=== PATIENT | male | born 1970 | race Caucasian/White ===

== ENCOUNTER 2024-10-01 00:36 | Emergency (ER) | payer BC ==
[2024-10-01 00:54] LABS: BASOPHILS ABSOLUTE AUTO 0.1 x10-3/uL (0.0-0.3); BASOPHILS PERCENT AUTO 0.7 % (0.3-3.8); EOSINOPHILS ABSOLUTE AUTO 0.3 x10-3/uL (0.0-0.6); EOSINOPHILS PERCENT AUTO 2.5 % (0.1-6.8); HEMATOCRIT 39.2 % (38.3-50.1); HEMOGLOBIN 13.8 g/dL (12.9-17.7); LYMPHOCYTES ABSOLUTE AUTO 3.5 x10-3/uL (0.5-4.5); MEAN CORPUSCULAR HEMOGLOBIN 34.8 pg (27.0-33.3); MEAN CORPUSCULAR HGB CONC 35.1 g/dL (28.7-35.3); MEAN PLATELET VOLUME 7.4 fL (6.7-11.0); MONOCYTES ABSOLUTE AUTO 1.1 x10-3/uL (0.0-1.2); NEUTROPHILS ABSOLUTE AUTO 7.1 x10-3/uL (1.7-6.9); NEUTROPHILS PERCENT AUTO 58.8 % (40.3-71.8); PLATELET COUNT,PLT 316 x10(3)uL (117-477); RED BLOOD CELL COUNT 3.96 x10(6)uL (3.90-5.90); RED CELL DISTRIBUTION WIDTH 13.4 % (12.4-15.0); WHITE BLOOD CELL COUNT,WBC 12.1 x10-3/uL (3.2-10.1)
[2024-10-01] MEDS: Ketorolac 30 MG/ML SDV IVPUSH ONE (01:00)
[2024-10-01] MEDS: Sodium Chloride 0.9% 10 ML Syringe FLUSH PRN (01:01)
[2024-10-01 01:02] LABS: A/G RATIO 0.9; ALANINE AMINOTRANSFERASE,ALT 59 U/L (12-36); ALBUMIN 3.4 g/dL (3.5-5.2); ALKALINE PHOSPHATASE 164 IU/L (56-112); ASPARTATE AMNIOTRANSFERASE,AST 115 IU/L (5-25); BILIRUBIN TOTAL 0.7 mg/dL (0.1-1.3); BLOOD UREA NITROGEN,BUN 17 mg/dL (7-18); BUN/CREATININE RATIO 15.5 (9-20); CALCIUM 8.6 mg/dL (8.6-10.2); CARBON DIOXIDE,CO2 24 mmol/L (21-32); CHLORIDE,CL 94 mmol/L (100-110); CREATININE 1.1 mg/dL (0.70-1.30); EST CRCL DRUG DOSING (CG) 81.11 mL/min; ESTIMATED GFR 81 mL/min (>60); GLUCOSE RANDOM 92 mg/dL (80-116); POTASSIUM,K 4.1 mmol/L (3.5-5.3); PROTEIN TOTAL,TP 7.2 g/dL (6.0-8.0); SODIUM,NA 129 mmol/L (135-145)
[2024-10-01] MEDS: Iopamidol 755 Mg/ML 100 ML Bottle IV SCH (01:18)
== END 2024-10-01 02:00 | disposition home or self-care (01) ==
LOC: FB.ED 00:36
DX: R10.30 Lower abdominal pain, unspecified (principal); F17.210 Nicotine dependence, cigarettes, uncomplicated; Z79.51 Long term (current) use of inhaled steroids; Z79.82 Long term (current) use of aspirin; Z79.899 Other long term (current) drug therapy
CPT/HCPCS: 36415; 74177; 80053; 83605; 84484; 85025; 85379; 93005; 93010; 96374; 99284; J1885; Q9967